=== PATIENT | female | born 1965 | race Native Hawaiian/Other Pacific Islander ===

== ENCOUNTER 2020-12-17 15:12 | Emergency (ER) | payer OTHER ==
[~2020-12-17] VITALS: Ht 162.6 cm; Wt 101.2 kg
[2020-12-17 15:43] LABS: PLATELET COUNT 341 K/uL (152-353)
[2020-12-17 15:51] LABS: POTASSIUM 3.8 mmol/L (3.6-5.2)
[2020-12-17 20:46] VITALS: BP 155/108; TEMP 98.7
== END 2020-12-17 20:46 | disposition home or self-care (01) ==
LOC: ED 15:12
PROVIDERS: Emergency Medicine
DX: F32.89 Other specified depressive episodes (principal); F41.8 Other specified anxiety disorders; Z11.52 Encounter for screening for COVID-19
CPT/HCPCS: 80053; 80307; 80320; 80329; 81000; 85027; 87635; 93005; 99285; U0003